=== PATIENT | male | born 1985 | race Caucasian/White ===

== ENCOUNTER 2020-07-05 12:32 | Inpatient (IN) | payer OTHER, SELFPAY ==
[2020-07-07 02:34] VITALS: BMI 25.7
[2020-07-08 06:45] VITALS: BP 140/72; PULSE 78; RESP 16; TEMP 36.3; O2SAT 97
[2020-07-08] MEDS: FLUoxetine HCl 20 MG CAPSULE PO (09:03)
[2020-07-08] MEDS: clonazePAM 1 MG TABLET PO ×2 (09:03→21:07)
[2020-07-08] MEDS: Lurasidone HCl 40 MG TABLET PO (09:03)
[2020-07-08] MEDS: Bacitracin Oint 14 GM TUBE 1 APPL TOPICAL ×2 (09:04→21:07)
[2020-07-08] MEDS: Lurasidone HCl 20 MG TABLET PO (10:28)
[2020-07-08 16:48] VITALS: BP 107/68; PULSE 84; TEMP 36.8
--- NOTE | 2020-07-08 17:06 | P.PNPSI_ITS ---
Assessment & Plan Assessment & Plan (1) Suicidal ideation: Status: Acute Code(s): R45.851 - Suicidal ideations Assessment and Plan: Evaluate safety Educate Refer for ongoing treatment (2) Mood swing: Status: Acute Code(s): R45.86 - Emotional lability Assessment and Plan: Continue Latuda and adjust the dose as needed Greater than 50% of the session was spent on counseling and/or coordination of care Spoke with father for 30 minutes Subjective Subjective Date of Service: 07/08/20 Reason For Visit: General Anxiety Subjective Notes: Conditional Voluntary and 3 Day Interim History: Alcon has been focused on leaving. LEYDA reports that his parents have said that they do not feel safe with him being at home as a result of his irritability, his impulsiveness, his threatening toward them at times. They are concerned about his not following through with treatment and the severity of the attempt that he made on his life. He is in considerable debt. He has disconnected from family members. I spoke with Alcon about the need for a solid discharge plan to ensure his safety and continued treatment. This is not in place. He does agree to [facility] but says he does not have a computer. He agrees to the idea. I explained the need to retract the 3 day since without a solid DC plan he is in the same situation as when he arrived and so at risk of harm. he is not able to go home. He declined to retract the three day and as a result a petition was filed for commitment since he is at imminent risk of harm. He is also very angry with his parents and may try to strike out at them. He is tolerating latuda and does seem to be less impulsive. Medication Compliance: Yes Side effects from medications: No Attending Groups: Intermittent Mental Status Exam Mental Status Exam Patient Appearance: Well Grooomed Level of Consciousness: Awake and Appropriate Patient Behavior: Talkative, Aggressive, Belligerent, Verbal Threats, Anxious, Impulsive and Pacing Mood Description: Suspicious, Depressed, Anxious and Angry Affect Description: Suspicious Patient Cognition Impaired: No Ability to Follow Directions: Poor Speech Pattern: Loud and Pressured Memory Description: Intact Hallucinations: None Delusions: Paranoid Ideation and Ideas of Reference Thought Process: Intact and Linear Thought Content: Preoccupation Depressive Symptoms: Increased Anxiety and Hopelessness Judgement: Poor Diagnostics Vital Signs (24Hr): Vital Signs - 24 hr 07/08/20 06:45 10/01/20 16:48 Temperature 97.4 F 98.2 F Pulse Rate 78 84 Respiratory Rate 16 Blood Pressure 140/72 H 107/68 Pulse Oximetry 97 Body Mass Index 25.7 Labs Results: 07/04/20 22:22 07/04/20 22:22 Labs: Laboratory Results - last 48 hr 07/04/20 07/04/20 07/04/20 22:22 22:22 22:22 WBC Cancelled RBC Cancelled Hgb Cancelled Hct Cancelled MCV Cancelled MCH Cancelled MCHC Cancelled RDW Coeff of Melvi Cancelled Plt Count Cancelled MPV Cancelled Immature Gran % (Auto) Cancelled Neut % (Auto) Cancelled Lymph % (Auto) Cancelled Pitt % (Auto) Cancelled Eos % (Auto) Cancelled Baso % (Auto) Cancelled Abs Immat Gran (auto) Cancelled Absolute Lymphs (auto) Cancelled Absolute Monos (auto) Cancelled Absolute Eos (auto) Cancelled Absolute Basos (auto) Cancelled Absolute Nucleated RBC Cancelled Nucleated RBC % (auto) Cancelled Sodium Cancelled Potassium Cancelled Chloride Cancelled Bicarbonate Cancelled Anion Gap Cancelled BUN Cancelled Creatinine Cancelled Estimated Creat Clear Cancelled Est GFR (Non-Af Amer) Cancelled Random Glucose Cancelled Estimat Average Glucose Hemoglobin A1c Total Bilirubin Cancelled Direct Bilirubin Cancelled AST Cancelled ALT Cancelled Alkaline Phosphatase Cancelled Total Protein Cancelled Albumin Cancelled Triglycerides Cholesterol LDL Cholesterol, Calc HDL Cholesterol Urine Opiates Screen Ur Barbiturates Screen Phencyclidine Screen Ur Amphetamines Screen U Benzodiazepines Scrn Urine Cocaine Screen U Cannabinoids Screen Ethyl Alcohol Cancelled Coronavirus (PCR) 07/04/20 07/05/20 07/06/20 23:33 09:26 07:00 WBC RBC Hgb Hct MCV MCH MCHC RDW Coeff of Melvi Plt Count MPV Immature Gran % (Auto) Neut % (Auto) Lymph % (Auto) Pitt % (Auto) Eos % (Auto) Baso % (Auto) Abs Immat Gran (auto) Absolute Lymphs (auto) Absolute Monos (auto) Absolute Eos (auto) Absolute Basos (auto) Absolute Nucleated RBC Nucleated RBC % (auto) Sodium Potassium Chloride Bicarbonate Anion Gap BUN Creatinine Estimated Creat Clear Est GFR (Non-Af Amer) Random Glucose Estimat Average Glucose Cancelled Hemoglobin A1c Cancelled Total Bilirubin Direct Bilirubin AST ALT Alkaline Phosphatase Total Protein Albumin Triglycerides Cholesterol LDL Cholesterol, Calc HDL Cholesterol Urine Opiates Screen NOT DETECTED Ur Barbiturates Screen NOT DETECTED Phencyclidine Screen NOT DETECTED Ur Amphetamines Screen NOT DETECTED U Benzodiazepines Scrn NOT DETECTED Urine Cocaine Screen NOT DETECTED U Cannabinoids Screen NOT DETECTED Ethyl Alcohol Coronavirus (PCR) NEGATIVE 07/06/20 07:00 WBC RBC Hgb Hct MCV MCH MCHC RDW Coeff of Melvi Plt Count MPV Immature Gran % (Auto) Neut % (Auto) Lymph % (Auto) Pitt % (Auto) Eos % (Auto) Baso % (Auto) Abs Immat Gran (auto) Absolute Lymphs (auto) Absolute Monos (auto) Absolute Eos (auto) Absolute Basos (auto) Absolute Nucleated RBC Nucleated RBC % (auto) Sodium Potassium Chloride Bicarbonate Anion Gap BUN Creatinine Estimated Creat Clear Est GFR (Non-Af Amer) Random Glucose Estimat Average Glucose Hemoglobin A1c Total Bilirubin Direct Bilirubin AST ALT Alkaline Phosphatase Total Protein Albumin Triglycerides Cancelled Cholesterol Cancelled LDL Cholesterol, Calc Cancelled HDL Cholesterol Cancelled Urine Opiates Screen Ur Barbiturates Screen Phencyclidine Screen Ur Amphetamines Screen U Benzodiazepines Scrn Urine Cocaine Screen U Cannabinoids Screen Ethyl Alcohol Coronavirus (PCR) Medications Medications Ambulatory Orders Medication Instructions Recorded clonazepam 1 tab PO BID 07/07/20 fluoxetine 1 cap PO DAILY 07/07/20 Allergies Allergies Allergy/AdvReac Type Severity Reaction Status Date / Time No Known Allergies* Allergy Uncoded 07/04/20 22:01
[2020-07-09 06:00] VITALS: BP 128/76; PULSE 84; RESP 16; TEMP 35.9; O2SAT 98
[2020-07-09] MEDS: clonazePAM 1 MG TABLET PO ×2 (08:45→22:28)
[2020-07-09] MEDS: FLUoxetine HCl 20 MG CAPSULE PO (08:45)
[2020-07-09] MEDS: Bacitracin Oint 14 GM TUBE 1 APPL TOPICAL ×2 (09:04→22:28)
[2020-07-09 17:15] VITALS: BP 124/69; PULSE 63; TEMP 36.8
[2020-07-09] MEDS: Lurasidone HCl 20 MG TABLET 60 MG PO (17:54)
--- NOTE | 2020-07-09 18:57 | P.PNPSI_ITS ---
Assessment & Plan Assessment & Plan (1) Mood swing: Status: Acute Code(s): R45.86 - Emotional lability Assessment and Plan: Continue latuda at current dose (2) Suicidal ideation: Status: Acute Code(s): R45.851 - Suicidal ideations Assessment and Plan: Currently denies Needs clear DC plan to be safe at home Greater than 50% of the session was spent on counseling and/or coordination of care Patient educated on: diagnosis and medication risk/benefits Reason for contiued inpatient stay Substantial Risk for: harm to self, harm to others and rapid decompensation Subjective Subjective Date of Service: 07/09/20 Reason For Visit: General Anxiety Subjective Notes: Other (Section 7) Interim History: I had a lengthy discussion with Confucianist's parents Mo and Ary. Reviewed diagnostics, and treatment plan for DC. They are in agreement with [facility], and his father will get him a computer to facilitate this, they will hold medication, Confucianist will have a Psychiatrist and therapist, and that if he does not agree to these conditions then he may not go to their home. This was presented to Confucianist with LEYDA. He acknowledges that he wants help and that he agrees to the terms. His mood is brightening and he is less agitated. Medication Compliance: Yes Side effects from medications: No Attending Groups: Yes Review of Systems Acute medical concerns: No Medical Review of Systems: unchanged Mental Status Exam Mental Status Exam Patient Appearance: Well Grooomed Patient Orientation: Person, Place, Time and Situation Level of Consciousness: Awake and Restless Patient Behavior: Appropriate, Cooperative and Aggressive Mood Description: Suspicious, Hostile and Apprehensive Affect Description: Apprehensive Patient Cognition Impaired: No Ability to Follow Directions: Good Speech Pattern: Monotone and Pressured Memory Description: Intact Hallucinations: None Delusions: Not Present Thought Process: Goal Oriented and Linear Thought Content: positive for Circumstantial and positive for Perseveration Depressive Symptoms: Increased Anxiety, Insomnia and Thoughts of /Suicide (NONE) Judgement: Fair Diagnostics Vital Signs (24Hr): Vital Signs - 24 hr 07/09/20 06:00 07/09/20 17:15 Temperature 96.7 F L 98.2 F Pulse Rate 84 63 Respiratory Rate 16 Blood Pressure 128/76 124/69 Pulse Oximetry 98 Body Mass Index 25.7 Labs Results: 07/04/20 22:22 07/04/20 22:22 Labs: Laboratory Results - last 48 hr 07/04/20 07/04/20 07/04/20 22:22 22:22 22:22 WBC Cancelled RBC Cancelled Hgb Cancelled Hct Cancelled MCV Cancelled MCH Cancelled MCHC Cancelled RDW Coeff of Melvi Cancelled Plt Count Cancelled MPV Cancelled Immature Gran % (Auto) Cancelled Neut % (Auto) Cancelled Lymph % (Auto) Cancelled O'Brien % (Auto) Cancelled Eos % (Auto) Cancelled Baso % (Auto) Cancelled Abs Immat Gran (auto) Cancelled Absolute Lymphs (auto) Cancelled Absolute Monos (auto) Cancelled Absolute Eos (auto) Cancelled Absolute Basos (auto) Cancelled Absolute Nucleated RBC Cancelled Nucleated RBC % (auto) Cancelled Sodium Cancelled Potassium Cancelled Chloride Cancelled Bicarbonate Cancelled Anion Gap Cancelled BUN Cancelled Creatinine Cancelled Estimated Creat Clear Cancelled Est GFR (Non-Af Amer) Cancelled Random Glucose Cancelled Estimat Average Glucose Hemoglobin A1c Total Bilirubin Cancelled Direct Bilirubin Cancelled AST Cancelled ALT Cancelled Alkaline Phosphatase Cancelled Total Protein Cancelled Albumin Cancelled Triglycerides Cholesterol LDL Cholesterol, Calc HDL Cholesterol Urine Opiates Screen Ur Barbiturates Screen Phencyclidine Screen Ur Amphetamines Screen U Benzodiazepines Scrn Urine Cocaine Screen U Cannabinoids Screen Ethyl Alcohol Cancelled Coronavirus (PCR) 07/04/20 07/05/20 07/06/20 23:33 09:26 07:00 WBC RBC Hgb Hct MCV MCH MCHC RDW Coeff of Melvi Plt Count MPV Immature Gran % (Auto) Neut % (Auto) Lymph % (Auto) O'Brien % (Auto) Eos % (Auto) Baso % (Auto) Abs Immat Gran (auto) Absolute Lymphs (auto) Absolute Monos (auto) Absolute Eos (auto) Absolute Basos (auto) Absolute Nucleated RBC Nucleated RBC % (auto) Sodium Potassium Chloride Bicarbonate Anion Gap BUN Creatinine Estimated Creat Clear Est GFR (Non-Af Amer) Random Glucose Estimat Average Glucose Cancelled Hemoglobin A1c Cancelled Total Bilirubin Direct Bilirubin AST ALT Alkaline Phosphatase Total Protein Albumin Triglycerides Cholesterol LDL Cholesterol, Calc HDL Cholesterol Urine Opiates Screen NOT DETECTED Ur Barbiturates Screen NOT DETECTED Phencyclidine Screen NOT DETECTED Ur Amphetamines Screen NOT DETECTED U Benzodiazepines Scrn NOT DETECTED Urine Cocaine Screen NOT DETECTED U Cannabinoids Screen NOT DETECTED Ethyl Alcohol Coronavirus (PCR) NEGATIVE 07/06/20 07:00 WBC RBC Hgb Hct MCV MCH MCHC RDW Coeff of Melvi Plt Count MPV Immature Gran % (Auto) Neut % (Auto) Lymph % (Auto) O'Brien % (Auto) Eos % (Auto) Baso % (Auto) Abs Immat Gran (auto) Absolute Lymphs (auto) Absolute Monos (auto) Absolute Eos (auto) Absolute Basos (auto) Absolute Nucleated RBC Nucleated RBC % (auto) Sodium Potassium Chloride Bicarbonate Anion Gap BUN Creatinine Estimated Creat Clear Est GFR (Non-Af Amer) Random Glucose Estimat Average Glucose Hemoglobin A1c Total Bilirubin Direct Bilirubin AST ALT Alkaline Phosphatase Total Protein Albumin Triglycerides Cancelled Cholesterol Cancelled LDL Cholesterol, Calc Cancelled HDL Cholesterol Cancelled Urine Opiates Screen Ur Barbiturates Screen Phencyclidine Screen Ur Amphetamines Screen U Benzodiazepines Scrn Urine Cocaine Screen U Cannabinoids Screen Ethyl Alcohol Coronavirus (PCR) Medications Medications Current Medications Generic Name Dose Route Start Last Admin Trade Name Freq PRN Reason Stop Dose Admin Acetaminophen 650 mg 07/08/20 00:01 Acetaminophen 325 Mg Tablet PO Q6H PRN HEADACHE/PAIN.MILD (SCALE 1-3) Al Hydroxide/Mg Hydroxide 30 ml 07/08/20 00:01 Magnesium Hydrox/Alum Hydrox 30 Ml Oral.Susp PO Q6H PRN HEARTBURN / NAUSEA Bacitracin 1 appl 07/08/20 09:00 07/09/20 09:04 Bacitracin Oint 14 Gm Tube TOPICAL 1 appl BID MAGGY Administration Protocol Clonazepam 1 mg 07/08/20 09:00 07/09/20 08:45 Clonazepam 1 Mg Tablet PO 1 mg BID MAGGY Administration Clonazepam 1 mg 07/08/20 00:01 Clonazepam 1 Mg Tablet PO Q4H PRN anxiety/restlessness Fluoxetine HCl 20 mg 07/08/20 09:00 07/09/20 08:45 Fluoxetine Hcl 20 Mg Capsule PO 20 mg DAILY MAGGY Administration Hydroxyzine HCl 25 mg 07/08/20 00:01 Hydroxyzine Hcl 25 Mg Tablet PO BEDTIME MRX1 PRN NIGHT TIME ANXIETY Lurasidone HCl 60 mg 07/09/20 17:00 07/09/20 17:54 Lurasidone Hcl 20 Mg Tablet PO 60 mg DAILY@1700 MAGGY Administration Magnesium Hydroxide 30 ml 07/08/20 00:01 Milk Of Magnesia 30 Ml Oral.Susp PO Q24H PRN Constipation Nicotine Polacrilex 2 mg 07/08/20 00:01 Nicotine Polacrilex 2 Mg Gum BUCCAL Q2H PRN NICOTINE CRAVINGS Trazodone HCl 50 mg 07/08/20 21:00 Trazodone Hcl 50 Mg Tablet PO BEDTIME MRX1 PRN Insomnia Allergies Allergies Allergy/AdvReac Type Severity Reaction Status Date / Time No Known Allergies* Allergy Uncoded 07/04/20 22:01
[2020-07-10 06:47] VITALS: BP 116/56; PULSE 63; RESP 16; TEMP 36.8
[2020-07-10] MEDS: FLUoxetine HCl 20 MG CAPSULE PO (08:41)
[2020-07-10] MEDS: clonazePAM 1 MG TABLET PO ×2 (09:05→22:08)
[2020-07-10] MEDS: Bacitracin Oint 14 GM TUBE 1 APPL TOPICAL ×2 (09:05→22:10)
[2020-07-10] MEDS: Milk of Magnesia 30 ML ORAL.SUSP PO (10:15)
--- NOTE | 2020-07-10 12:10 | HO.PSYCHPN ---
Assessment & Plan Assessment & Plan (1) Mood swing: Status: Acute Code(s): R45.86 - Emotional lability Assessment and Plan: 1 wk ago stressed over IRS bill then went drinking (2) Suicidal ideation: Status: Acute Code(s): R45.851 - Suicidal ideations Assessment and Plan: reports had knife to cut throat but couldn't , cut some on arm to identify pressure feeling differently now that not drinking and getting help he needs also feels that he can manage IRS issue Greater than 50% of the session was spent on counseling and/or coordination of care Subjective Subjective Date of Service: 07/10/20 Reason For Visit: ?gaston Subjective Notes: Other (sec 7) Interim History: Patient felt helped by nurse today who told him dr valenzuela is working in out in area he hopes to reconnect felt connected to him as a child- able to take sec 7 in perspective in that dental tech helped him have a different view- that he is now getting help he needed looking to partial hospital/outpatient care- he has terrible association with inpatient psych- from 7 yo Medication Compliance: Yes Side effects from medications: No Attending Groups: Intermittent Review of Systems Acute medical concerns: No Medical Review of Systems: unchanged Mental Status Exam Mental Status Exam Narrative: cooperative Patient Appearance: Well Grooomed Patient Orientation: Person, Place, Time and Situation Level of Consciousness: Awake and Alert Patient Behavior: Guarded and Cooperative Behavior Comments: kempt Mood Description: Calm and Anxious Affect Description: Constricted Patient Cognition Impaired: No Ability to Follow Directions: Good Speech Pattern: Clear Hallucinations: None Thought Process: Intact Thought Content: positive for Preoccupation Depressive Symptoms: Increased Anxiety, Diff. Making Decisions and Increased Irritability (was freaked out by 13k tax bill from [employer] - felt terrible) Abnormal Motor Activity Signs and Symptoms: Restlessness Judgement: Fair Diagnostics Vital Signs (24Hr): Vital Signs - 24 hr 07/09/20 17:15 07/10/20 06:47 Temperature 98.2 F 98.3 F Pulse Rate 63 63 Respiratory Rate 16 Blood Pressure 124/69 116/56 L Body Mass Index 25.7 Labs Results: 07/04/20 22:22 07/04/20 22:22 Medications Medications Current Medications Generic Name Dose Route Start Last Admin Trade Name Freq PRN Reason Stop Dose Admin Acetaminophen 650 mg 07/08/20 00:01 Acetaminophen 325 Mg Tablet PO Q6H PRN HEADACHE/PAIN.MILD (SCALE 1-3) Al Hydroxide/Mg Hydroxide 30 ml 07/08/20 00:01 Magnesium Hydrox/Alum Hydrox 30 Ml Oral.Susp PO Q6H PRN HEARTBURN / NAUSEA Bacitracin 1 appl 07/08/20 09:00 07/10/20 09:05 Bacitracin Oint 14 Gm Tube TOPICAL 1 appl BID MAGGY Administration Protocol Clonazepam 1 mg 07/08/20 09:00 07/10/20 09:05 Clonazepam 1 Mg Tablet PO 1 mg BID MAGGY Administration Clonazepam 1 mg 07/08/20 00:01 Clonazepam 1 Mg Tablet PO Q4H PRN anxiety/restlessness Clonidine HCl 0.1 mg 07/09/20 21:00 07/09/20 22:34 Clonidine Hcl 0.1 Mg Tablet PO Not Given BEDTIME COUNT INCLUDES [facility] Protocol Fluoxetine HCl 20 mg 07/08/20 09:00 07/10/20 08:41 Fluoxetine Hcl 20 Mg Capsule PO 20 mg DAILY MAGGY Administration Hydroxyzine HCl 25 mg 07/08/20 00:01 Hydroxyzine Hcl 25 Mg Tablet PO BEDTIME MRX1 PRN NIGHT TIME ANXIETY Lurasidone HCl 60 mg 07/09/20 17:00 07/09/20 17:54 Lurasidone Hcl 20 Mg Tablet PO 60 mg DAILY@1700 MAGGY Administration Magnesium Hydroxide 30 ml 07/08/20 00:01 07/10/20 10:15 Milk Of Magnesia 30 Ml Oral.Susp PO 30 ml Q24H PRN Administration Constipation Nicotine Polacrilex 2 mg 07/08/20 00:01 Nicotine Polacrilex 2 Mg Gum BUCCAL Q2H PRN NICOTINE CRAVINGS Trazodone HCl 50 mg 07/08/20 21:00 Trazodone Hcl 50 Mg Tablet PO BEDTIME MRX1 PRN Insomnia Allergies Allergies Allergy/AdvReac Type Severity Reaction Status Date / Time No Known Allergies Allergy Verified 07/09/20 19:20
[2020-07-10] MEDS: Lurasidone HCl 20 MG TABLET 60 MG PO (17:20)
[2020-07-10 18:00] VITALS: BP 112/54; PULSE 68; TEMP 37.1
[2020-07-10 22:08] VITALS: BP 112/54; PULSE 68
[2020-07-10] MEDS: cloNIDine HCL 0.1 MG TABLET PO (22:08)
[2020-07-11 06:00] VITALS: BP 110/54; PULSE 75; RESP 16; TEMP 36.5; O2SAT 99
[2020-07-11] MEDS: clonazePAM 1 MG TABLET PO ×2 (08:44→19:39)
[2020-07-11] MEDS: FLUoxetine HCl 20 MG CAPSULE PO (08:44)
--- NOTE | 2020-07-11 12:31 | HO.PSYCHPN ---
Assessment & Plan Assessment & Plan (1) Mood swing: Status: Acute Code(s): R45.86 - Emotional lability Assessment and Plan: taking medications (2) Suicidal ideation: Status: Acute Code(s): R45.851 - Suicidal ideations Assessment and Plan: denies Greater than 50% of the session was spent on counseling and/or coordination of care Subjective Subjective Date of Service: 07/11/20 Reason For Visit: ?gaston Subjective Notes: Other (sec 7) Interim History: Pt didn't sleep alot but went to bed at 9p and up at 3am - still feels overall better, excited about plan to go to [facility] and possibly get prior psychiatrist Medication Compliance: Yes Side effects from medications: No Attending Groups: Yes Review of Systems Acute medical concerns: No Medical Review of Systems: unchanged Review of Systems: denies any s/e of medications Mental Status Exam Mental Status Exam Narrative: walking jovel, appropriately dressed and groomed, wearing mask appropriately Patient Appearance: Appropriate Patient Orientation: Person, Place, Time and Situation Level of Consciousness: Awake and Alert Patient Behavior: Appropriate, Cooperative and Pacing Mood Description: Anxious Affect Description: Calm and Constricted Patient Cognition Impaired: No Ability to Follow Directions: Good Speech Pattern: Clear Thought Process: Intact and Goal Oriented Thought Content: positive for Intact and positive for Goal Oriented Depressive Symptoms: Insomnia (got 5 hrs) Abnormal Motor Activity Signs and Symptoms: Restlessness Judgement: Fair Diagnostics Vital Signs (24Hr): Vital Signs - 24 hr 07/10/20 18:00 07/10/20 22:08 07/11/20 06:00 Temperature 98.7 F 97.7 F Pulse Rate 68 68 75 Respiratory Rate 16 Blood Pressure 112/54 L 112/54 L 110/54 L Pulse Oximetry 99 Body Mass Index 25.7 Labs Results: 07/04/20 22:22 07/04/20 22:22 Medications Medications Current Medications Generic Name Dose Route Start Last Admin Trade Name Freq PRN Reason Stop Dose Admin Acetaminophen 650 mg 07/08/20 00:01 Acetaminophen 325 Mg Tablet PO Q6H PRN HEADACHE/PAIN.MILD (SCALE 1-3) Al Hydroxide/Mg Hydroxide 30 ml 07/08/20 00:01 Magnesium Hydrox/Alum Hydrox 30 Ml Oral.Susp PO Q6H PRN HEARTBURN / NAUSEA Bacitracin 1 appl 07/08/20 09:00 07/10/20 22:10 Bacitracin Oint 14 Gm Tube TOPICAL 1 appl BID MAGGY Administration Protocol Clonazepam 1 mg 07/08/20 09:00 07/11/20 08:44 Clonazepam 1 Mg Tablet PO 1 mg BID MAGGY Administration Clonazepam 1 mg 07/08/20 00:01 Clonazepam 1 Mg Tablet PO Q4H PRN anxiety/restlessness Clonidine HCl 0.1 mg 07/09/20 21:00 07/10/20 22:08 Clonidine Hcl 0.1 Mg Tablet PO 0.1 mg BEDTIME MAGGY Administration Protocol Fluoxetine HCl 20 mg 07/08/20 09:00 07/11/20 08:44 Fluoxetine Hcl 20 Mg Capsule PO 20 mg DAILY MAGGY Administration Hydroxyzine HCl 25 mg 07/08/20 00:01 Hydroxyzine Hcl 25 Mg Tablet PO BEDTIME MRX1 PRN NIGHT TIME ANXIETY Lurasidone HCl 60 mg 07/09/20 17:00 07/10/20 17:20 Lurasidone Hcl 20 Mg Tablet PO 60 mg DAILY@1700 MAGGY Administration Magnesium Hydroxide 30 ml 07/08/20 00:01 07/10/20 10:15 Milk Of Magnesia 30 Ml Oral.Susp PO 30 ml Q24H PRN Administration Constipation Nicotine Polacrilex 2 mg 07/08/20 00:01 Nicotine Polacrilex 2 Mg Gum BUCCAL Q2H PRN NICOTINE CRAVINGS Trazodone HCl 50 mg 07/08/20 21:00 Trazodone Hcl 50 Mg Tablet PO BEDTIME MRX1 PRN Insomnia Allergies Allergies Allergy/AdvReac Type Severity Reaction Status Date / Time No Known Allergies Allergy Verified 07/09/20 19:20
[2020-07-11] MEDS: Bacitracin Oint 14 GM TUBE 1 APPL TOPICAL ×2 (13:37→19:40)
[2020-07-11 16:23] VITALS: BP 105/58; PULSE 71; TEMP 36.4
[2020-07-11] MEDS: Lurasidone HCl 20 MG TABLET 60 MG PO (17:22)
[2020-07-11 19:39] VITALS: BP 115/55; PULSE 68
[2020-07-11] MEDS: cloNIDine HCL 0.1 MG TABLET PO (19:39)
[2020-07-12] MEDS: hydrOXYzine HCL 25 MG TABLET PO (00:38)
[2020-07-12 06:50] VITALS: BP 113/55; PULSE 72; RESP 16; TEMP 36.4
[2020-07-12] MEDS: FLUoxetine HCl 20 MG CAPSULE PO (08:38)
[2020-07-12] MEDS: clonazePAM 1 MG TABLET PO ×2 (08:38→22:17)
[2020-07-12] MEDS: Bacitracin Oint 14 GM TUBE 1 APPL TOPICAL ×2 (08:42→22:17)
[2020-07-12] MEDS: Milk of Magnesia 30 ML ORAL.SUSP PO (08:44)
--- NOTE | 2020-07-12 09:21 | P.PNPSI_ITS ---
Assessment & Plan Assessment & Plan (1) Mood swing: Status: Acute Code(s): R45.86 - Emotional lability Assessment and Plan: Significant improvement Increase Latuda [facility] Referrals Greater than 50% of the session was spent on counseling and/or coordination of care Subjective Subjective Date of Service: 07/12/20 Reason For Visit: ?gaston Subjective Notes: Legal Status (S7) Interim History: Alcon is notably calmer and more reasonable. He was able to express his frustration and disappointment about not being DC today, but he was also able to understand the rationale. He reports that he feels that the Latuda has helped him to think more clearly. Medication Compliance: Yes Side effects from medications: No Attending Groups: Yes Review of Systems Acute medical concerns: No Medical Review of Systems: unchanged Mental Status Exam Mental Status Exam Patient Appearance: Well Grooomed Patient Orientation: Person, Place, Time and Situation Level of Consciousness: Awake Patient Behavior: Appropriate Mood Description: Calm Affect Description: Calm Patient Cognition Impaired: No Ability to Follow Directions: Excellent Speech Pattern: Clear, Normal for Patient and Appropriate Memory Description: Intact Hallucinations: None Delusions: Not Present Thought Process: Goal Oriented Thought Content: positive for Circumstantial, positive for Perseveration, positive for Suicidal Ideation (No) and positive for Homicidal Ideation (No) Judgement: Fair Judgement and Insight: Greatly improved insight Diagnostics Vital Signs (24Hr): Vital Signs - 24 hr 07/11/20 16:23 07/11/20 19:39 07/12/20 06:50 Temperature 97.5 F 97.5 F Pulse Rate 71 68 72 Respiratory Rate 16 Blood Pressure 105/58 L 115/55 L 113/55 L Body Mass Index 25.7 Labs Results: 07/04/20 22:22 07/04/20 22:22 Medications Medications Current Medications Generic Name Dose Route Start Last Admin Trade Name Freq PRN Reason Stop Dose Admin Acetaminophen 650 mg 07/08/20 00:01 Acetaminophen 325 Mg Tablet PO Q6H PRN HEADACHE/PAIN.MILD (SCALE 1-3) Al Hydroxide/Mg Hydroxide 30 ml 07/08/20 00:01 Magnesium Hydrox/Alum Hydrox 30 Ml Oral.Susp PO Q6H PRN HEARTBURN / NAUSEA Bacitracin 1 appl 07/08/20 09:00 07/12/20 08:42 Bacitracin Oint 14 Gm Tube TOPICAL 1 appl BID MAGGY Administration Protocol Clonazepam 1 mg 07/08/20 09:00 07/12/20 08:38 Clonazepam 1 Mg Tablet PO 1 mg BID MAGGY Administration Clonazepam 1 mg 07/08/20 00:01 Clonazepam 1 Mg Tablet PO Q4H PRN anxiety/restlessness Clonidine HCl 0.1 mg 07/09/20 21:00 07/11/20 19:39 Clonidine Hcl 0.1 Mg Tablet PO 0.1 mg BEDTIME MAGGY Administration Protocol Fluoxetine HCl 20 mg 07/08/20 09:00 07/12/20 08:38 Fluoxetine Hcl 20 Mg Capsule PO 20 mg DAILY MAGGY Administration Hydroxyzine HCl 25 mg 07/08/20 00:01 07/12/20 00:38 Hydroxyzine Hcl 25 Mg Tablet PO 25 mg BEDTIME MRX1 PRN Administration NIGHT TIME ANXIETY Lurasidone HCl 60 mg 07/09/20 17:00 07/11/20 17:22 Lurasidone Hcl 20 Mg Tablet PO 60 mg DAILY@1700 MAGGY Administration Magnesium Hydroxide 30 ml 07/08/20 00:01 07/12/20 08:44 Milk Of Magnesia 30 Ml Oral.Susp PO 30 ml Q24H PRN Administration Constipation Nicotine Polacrilex 2 mg 07/08/20 00:01 Nicotine Polacrilex 2 Mg Gum BUCCAL Q2H PRN NICOTINE CRAVINGS Trazodone HCl 50 mg 07/08/20 21:00 Trazodone Hcl 50 Mg Tablet PO BEDTIME MRX1 PRN Insomnia Allergies Allergies Allergy/AdvReac Type Severity Reaction Status Date / Time No Known Allergies Allergy Verified 07/09/20 19:20
[2020-07-12] MEDS: Lurasidone HCl 80 MG TABLET PO (16:18)
[2020-07-12 22:08] VITALS: BP 121/68; PULSE 69; TEMP 36.6
[2020-07-12 22:18] VITALS: BP 121/68; PULSE 64
[2020-07-12] MEDS: cloNIDine HCL 0.1 MG TABLET PO (22:18)
[2020-07-13] MEDS: hydrOXYzine HCL 25 MG TABLET PO (02:47)
[2020-07-13] MEDS: traZODone HCL 50 MG TABLET PO (02:47)
[2020-07-13 06:00] VITALS: BP 112/56; PULSE 61; RESP 16; TEMP 36.2
[2020-07-13] MEDS: clonazePAM 1 MG TABLET PO (09:30)
[2020-07-13] MEDS: FLUoxetine HCl 20 MG CAPSULE PO (09:30)
[2020-07-13] MEDS: Bacitracin Oint 14 GM TUBE 1 APPL TOPICAL (09:33)
--- NOTE | 2020-07-13 09:37 | HO.PSYCHPN ---
Assessment & Plan Assessment & Plan (1) Mood swing: Status: Acute Code(s): R45.86 - Emotional lability Assessment and Plan: Much improved with Latuda CT treatment as OP. See DC summary. (2) Suicidal ideation: Status: Resolved Code(s): R45.851 - Suicidal ideations Greater than 50% of the session was spent on counseling and/or coordination of care Subjective Subjective Date of Service: 07/13/20 Reason For Visit: ?gaston Interim History: Alcon refused to have his labs for lipoprotien and HBA1c. He agreed to have them does as an outpatient. He had his PHP intake and will start the program tomorrow. He is signficantly clearer. Medication Compliance: Yes Side effects from medications: No Attending Groups: Yes Review of Systems Acute medical concerns: No Medical Review of Systems: unchanged Mental Status Exam Mental Status Exam Patient Appearance: Well Grooomed Patient Orientation: Person Level of Consciousness: Awake Patient Behavior: Appropriate Mood Description: Calm Affect Description: Calm Patient Cognition Impaired: No Ability to Follow Directions: Excellent Speech Pattern: Clear Memory Description: Intact Hallucinations: None Delusions: Not Present Thought Process: Intact Thought Content: positive for Intact, positive for Suicidal Ideation (No) and positive for Homicidal Ideation (No) Judgement: Good Judgement and Insight: Much improved Diagnostics Vital Signs (24Hr): Vital Signs - 24 hr 07/12/20 22:08 07/12/20 22:18 07/13/20 06:00 Temperature 97.8 F 97.1 F Pulse Rate 69 64 61 Respiratory Rate 16 Blood Pressure 121/68 121/68 112/56 L Body Mass Index 25.7 Labs Results: 07/04/20 22:22 07/04/20 22:22 Medications Medications Current Medications Generic Name Dose Route Start Last Admin Trade Name Freq PRN Reason Stop Dose Admin Acetaminophen 650 mg 07/08/20 00:01 Acetaminophen 325 Mg Tablet PO Q6H PRN HEADACHE/PAIN.MILD (SCALE 1-3) Al Hydroxide/Mg Hydroxide 30 ml 07/08/20 00:01 Magnesium Hydrox/Alum Hydrox 30 Ml Oral.Susp PO Q6H PRN HEARTBURN / NAUSEA Bacitracin 1 appl 07/08/20 09:00 07/13/20 09:33 Bacitracin Oint 14 Gm Tube TOPICAL 1 appl BID MAGGY Administration Protocol Clonazepam 1 mg 07/13/20 09:21 07/13/20 09:30 Clonazepam 1 Mg Tablet PO 1 mg BID MAGGY Administration Clonidine HCl 0.1 mg 07/09/20 21:00 07/12/20 22:18 Clonidine Hcl 0.1 Mg Tablet PO 0.1 mg BEDTIME MAGGY Administration Protocol Fluoxetine HCl 20 mg 07/08/20 09:00 07/13/20 09:30 Fluoxetine Hcl 20 Mg Capsule PO 20 mg DAILY MAGGY Administration Hydroxyzine HCl 25 mg 07/08/20 00:01 07/13/20 02:47 Hydroxyzine Hcl 25 Mg Tablet PO 25 mg BEDTIME MRX1 PRN Administration NIGHT TIME ANXIETY Lurasidone HCl 80 mg 07/12/20 17:00 07/12/20 16:18 Lurasidone Hcl 80 Mg Tablet PO 80 mg DAILY@1700 MAGGY Administration Magnesium Hydroxide 30 ml 07/08/20 00:01 07/12/20 08:44 Milk Of Magnesia 30 Ml Oral.Susp PO 30 ml Q24H PRN Administration Constipation Nicotine Polacrilex 2 mg 07/08/20 00:01 Nicotine Polacrilex 2 Mg Gum BUCCAL Q2H PRN NICOTINE CRAVINGS Trazodone HCl 50 mg 07/08/20 21:00 07/13/20 02:47 Trazodone Hcl 50 Mg Tablet PO 50 mg BEDTIME MRX1 PRN Administration Insomnia Allergies Allergies Allergy/AdvReac Type Severity Reaction Status Date / Time No Known Allergies Allergy Verified 07/09/20 19:20
--- NOTE | 2020-07-13 11:10 | P.DS_ITS ---
DS: Providers Provider Date of admission: 07/05/20 12:32 Primary care physician: Unknown Physician Consults: 07/07/20 05:34 Consult to Crisis Stat DS: Diagnosis Discharge Diagnosis (1) Mood swing: Status: Acute (2) Suicidal ideation: Status: Resolved Discharge Plan Discharge Anticipated Discharge Date/Time: 07/13/20 13:00 Patient Disposition: Home, Self-Care Referrals: Michelle Robb [Other] - 07/19/20 11:00 am Stanley Eduardo [Other] - 08/10/20 1:00 pm Stanley Eduardo [Other] - 09/07/20 3:[address] CHIOMA MCKEE [Other] - 07/15/20 11:30 am [facility] [Other] - 07/14/20 9:00 am (Jennifer Kiser will email you an invite to [facility] through your [employer] account to start PHP om 07/14/20 at 9:00AM. ) Physician,Unknown [Primary Care Provider] - Discharge Medications: New hydroxyzine HCl 25 mg Tablet 25 mg PO BEDTIME MRX1 PRN (Reason: NIGHT TIME ANXIETY) Qty: 30 RF: 0 fluoxetine 20 mg Capsule 20 mg PO DAILY Qty: 30 RF: 0 Latuda 80 mg Tablet 80 mg PO DAILY@1700 Qty: 30 RF: 0 clonidine HCl 0.1 mg Tablet 0.1 mg PO BEDTIME Qty: 30 RF: 0 trazodone 50 mg Tablet 50 mg PO BEDTIME MRX1 PRN (Reason: Insomnia) Qty: 30 RF: 0 clonazepam 1 mg Tablet 1 mg PO BID Qty: 60 RF: 0 Discontinued fluoxetine 40 mg capsule 1 cap PO DAILY RF: 0 clonazepam 1 mg tablet 1 tab PO BID RF: 0 Discharge Orders: Discharge Order (Routine); Ordered 07/13/20 Ordered By: Patricia Ruggiero Diet: advance to your usual diet Activity on Discharge: As tolerated Stand Alone Forms: Community Support Visit Report Forms: Patient Portal Discharge page Care Plan Goals: Reduce psychosis and mood lability Health Concerns: Psychosis Impulsivitiy Plan of Treatment: Stay on medications Attend PHP See your psychiatrist and therapist
[2020-07-13 11:55] LABS: MANUAL DIFF FLAG NO
[2020-07-13 12:03] LABS: Basophils Percent Auto 0.5 % (0-2); Eosinophils Absolute Auto 0.1 X10*3/uL (0.0-0.4); Eosinophils Percent Auto 2.1 % (0-4); Hematocrit 43.4 % (42-52); Hemoglobin 14.7 g/dl (14.0-18.0); Imm Gran Abs Auto 0.02 X10*3/uL (0.00-0.03); Imm Gran Pct Auto 0.3 % (0.0-0.4); Lymphocytes Absolute Auto 1.8 X10*3/uL (1.2-4.9); Lymphocytes Percent Auto 30.8 % (20-40); Mean Corpuscular HGB Conc 33.9 g/dl (31.0-36.0); Mean Corpuscular Hemoglobin 31.9 pg (27.0-33.0); Mean Corpuscular Volume 94.1 fL (80-98); Mean Platelet Volume 10.1 fL (9.4-12.4); Monocytes Absolute Auto 0.5 X10*3/uL (0.1-1.2); Monocytes Percent Auto 7.8 % (2-11); Neutrophils Absolute Auto 3.4 X10*3/uL (2.0-8.3); Neutrophils Percent Auto 58.5 % (45-73); Platelet Count 251 X10*3/uL (160-400); Red Blood Count 4.61 X10*6/uL (4.60-5.80); Red Cell Distribution Width 12.2 % (11.0-16.0); White Blood Count 5.8 X10*3/uL (4.8-10.8)
[2020-07-13 12:36] LABS: Alanine Aminotransferase 18 U/L (0-40); Albumin Level 4.4 g/dL (3.5-5.0); Alkaline Phosphatase 72 U/L (39-117); Anion Gap 12 (12-20); Aspartate Amino Transferase 17 U/L (5-37); Bilirubin Total 0.5 mg/dL (0.0-1.0); Blood Urea Nitrogen 12 mg/dL (9-16); Calcium 9.4 mg/dL (8.4-10.2); Carbon Dioxide 28 mmol/L (22-29); Chloride 105 mmol/L (96-108); Cholesterol 209 mg/dL; Creatinine Clr Calc Pharmacy 92.1; Estimated Glomerular Filt Rate > 60; Glucose Fasting 85 mg/dL (60-99); HDL Cholesterol 36 mg/dL; LDL Cholesterol Calculated 131 mg/dl; Potassium 4.5 mmol/l (3.3-5.1); Sodium 140 mmol/L (135-145); Total Protein 6.5 g/dL (6.5-8.0); Triglycerides 211 mg/dL
[2020-07-13 14:06] LABS: Estimated Average Glucose 97 mg/dL
== END 2020-07-13 14:24 | disposition home or self-care (01) | DRG 885 ==
PROVIDERS: Admitting Provider Psychiatry & Neurology Psychiatry; Emergency Provider Physician Assistant; Visit Provider Psychiatry & Neurology Psychiatry
DX: F31.10 Bipolar disorder, current episode manic without psychotic features, unspecified (principal); R45.851 Suicidal ideations; Z20.828 Contact with and (suspected) exposure to other viral communicable diseases; Z79.899 Other long term (current) drug therapy
CPT/HCPCS: 36415; 80053; 80061; 80307; 83036; 83070; 83695; 85025; 96372; 99232; 99285; J1200; J2060; U0003

== ENCOUNTER 2020-08-03 13:30 | Outpatient (RCR) | payer OTHER, SELFPAY ==
[2020-07-14 13:23] VITALS: BMI 27.1
--- NOTE | 2020-07-14 14:46 | PC.ADMIT ---
Completed via telephone d/t pandemic and telehealth platform of the program. Patient is a 35 year old male who started the PHP program today d/t mood instability. Patient was referred by [facility] where he was admitted for depression with SI. Prior to hospitalization patient cut his wrist superficially and attempted to cut his throat. His parents whom he lives with called 911 and patient was taken to the hospital with police presence. Pt reportedly was drinking ETOH an was aggressive towards police and ER staff. Pt reportdly was given a medication restraint in the ER. Pt reports financial issues related to gambling addiction and reportedly is in debt 13,000 dollars to the IRS. Patient is alert and oriented x4. Calm and cooperative. Denied SI. Gave verbal permission to email him a copy of his safety plan and agreed to utilize if feeling unsafe. Pt also agreed to talk to staff and has the crisis number if needed. Pt plans on abstaining from substances.
--- NOTE | 2020-07-14 16:24 | P.HPPSP_ITS ---
HPI Chief Complaint: depression Sources of Information: patient interviewed and chart reviewed HPI Narrative: 35 yo male, admitted in step-down from where he was admitted for SI with plan and superficial cuts to wrists,arms and throat. Reports an increase in depressive and anxious sx, anergy, feeling hopeless, helpless with increases in sleep and appetite. 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 He describes a cycle, in work and treatment of working closely with people, becoming emotionally attached, then leaving abruptly. He describes this with a previous therapist who was very helpful to him. Describes feeling guilty that he did not feel improved, pretending to improve, then stopping. Reports symptoms of depression and anxiety have been present for most of his life. Identifies other stressors as financial stress due to job loss and compulsive gambling- enjoying horse racing with interest in the sport and as a result recently received a bill owing the [facility] 13K which was a trigger to recent suicide attempt/SIBS. Reports that while in- patient he was started on Clonidine, Hydroxyzine, Trazodone and Latuda. He states Latuda has been significantly helpful in taking away his sx of dwelling on issues and has decreased my tendency to have tunnel vision . Past Psychiatric History: In Pt: Admitted at age 7 for questionable psychosis- this was a traumatic experience for pt. OP: hx of psychotherapy-states he has had excellent care and feels guilty that he does not improve, so pretends he is OK and precipitously ends treatment. Referred to [facility]. Michelle Robb 07/19/20. Dr. Eduardo 08/09/20. Pt has worked with Dr. Eduardo in the past and is pleased with this referral as he believes Dr. Eduardo had the most success in working with him. Trials: Childhood. No recent ones he recalls. Medical Evaluation Reviewed: Yes [facility] Medical History (Updated 07/16/20 @ 09:31 by Heather Goldman APRN) Elbow fracture H/O multiple concussions History of ankle fracture PTSD (post-traumatic stress disorder) Family History: depression anxiety Social History: Single, lives with family of origin. 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 Denies legal issues Substance History: Cannabis on occasion, social alcohol use. Gambling on horses is an issue-currently owes IRS 13K. Has genuine interest in the sport he reports. Trauma History: In-patient psychiatric admission age 7. Diagnostics Vital Signs (24Hr): Body Mass Index 27.1 Meds/Allergies Allergies Allergies Allergy/AdvReac Type Severity Reaction Status Date / Time No Known Allergies Allergy Verified 07/09/20 19:20 Mental Status Exam Mental Status Exam Patient Appearance: Well Grooomed and Appropriate Patient Orientation: Person, Place, Time and Situation Level of Consciousness: Awake, Appropriate and Alert Patient Behavior: Appropriate, Talkative and Cooperative Behavior Comments: Forthcoming Mood Description: Calm, Appropriate and Flat Affect Description: Calm and Flat Patient Cognition Impaired: No Ability to Follow Directions: Excellent Speech Pattern: Clear and Appropriate Memory Description: Intact Hallucinations: None Delusions: Not Present Thought Process: Intact Thought Content: positive for Intact Depressive Symptoms: Increased Anxiety, Difficulty Sleeping, Changes in Appetite, Sleeping More Than Usual, Loss of Int. in Activity, Hopelessness, Isolating-Friends/Family, Feelings of Guilt, Increased Fatigue and Loss of Energy Judgement: Good Assessment & Plan Patient educated on: medication risk/benefits (Continue Klonopin 1 mg bid, Clonidine 0.1 mg hs, Prozac 20 mg daily, Atarax 25 mg hs-MRx1, Latuda 80 mg daily, Trazodone 50 mg hs MRx1.) and therapeutic strategies Informed Consent: understands and further education needed Reason for continued partial hosp. stay Substantial Risk for: harm to self, inability to function and rapid decompensation Certification I certify that partial hospital treatment is medically necessary due to the symptoms and problems resulting from the patient's mental illness and the failure to treat the patient at the partial hospital level of care would likely result in the patient requiring inpatient psychiatric care which could not be prevented at a less intensive level of care.
--- NOTE | 2020-07-22 13:27 | PC.NURSE ---
Called patient and gave him information about online [place] groups. Patient thankful and stated he is planning on attending online groups for more support. Stated he has not gambled since being in the program and has been making some lifestyle changes which he attributes from attending the program. Learning how to cope with his emotions and is now able to be open and honest with his family. Wants to be able to, keep on this path .
--- NOTE | 2020-07-22 16:05 | P.PNPSP_ITS ---
Subjective Subjective Date of Service: 07/22/20 Reason For Visit: depression Interim History: Pt reports feeling off a bit today. Sister/family are visiting from out of town and pt reports receiving some bad news today. Reports mood to be stable, even my family notices the difference . Symptom mgt goals are 1. anxiety; 2. compulsivity; 3. depression and 4. low self-esteem. Pt reports he has had difficulty with sleep-not using sleeping medication unless he is desparate . Reports he does not feel tired, has adequate energy and appetite is intact. Current sleep pattern is MISTY-up for the day at 2am. Usually in bed by 8pm, asleep within an hour, nightmares are diminishing. States he is able to remain up all day, without naps and not feeling tired. Not wanting to utilize Trazodone or Hydroxyzine. Discussion of low dose Remeron which he is interested in. Medication Compliance: No (not using Trazodone/Hydroxyzine with reported MISTY/EDMUNDO-getting 5-6 hours/noc) Side effects from medications: No Attending Groups: Yes Review of Systems Review of Systems Yes all other systems are reviewed and are negative Psychiatric: Reports abnormal sleep pattern and Reports anxiety Mental Status Exam Mental Status Exam Patient Orientation: Person, Place, Time and Situation Level of Consciousness: Awake and Alert Patient Behavior: Appropriate Mood Description: Calm and Flat Affect Description: Calm and Flat Patient Cognition Impaired: No Ability to Follow Directions: Excellent Speech Pattern: Clear, Appropriate and Spontaneous Speech Memory Description: Intact Hallucinations: None Delusions: Not Present Thought Process: Intact Thought Content: positive for Intact Depressive Symptoms: Insomnia (MISTY, EDMUNDO) and Difficulty Sleeping Judgement: Good Diagnostics Vital Signs (24Hr): Body Mass Index 27.1 Assessment & Plan Patient educated on: medication risk/benefits and therapeutic strategies Informed Consent: understands and further education needed Reason for contiued partial hosp. stay Substantial Risk for: harm to self, inability to function and rapid decompensation Certification I certify that partial hospital treatment is medically necessary due to the symptoms and problems resulting from the patient's mental illness and the fail ure to treat the patient at the partial hospital level of care would likely result in the patient requiring inpatient psychiatric care which could not be prevented at a less intensive level of care. Greater than 50% of the session was spent on counseling and/or coordination of care Discharge Plan Discharge Attending provider: Teo Kern Additional Instructions: Discontinue Trazodone Mirtazapine 3.75-7.5 mg HS Medications: New mirtazapine 7.5 mg tablet 3.75 - 7.5 mg PO BEDTIME Qty: 10 RF: 0 Discontinued trazodone 50 mg Tablet 50 mg PO BEDTIME MRX1 PRN (Reason: Insomnia) Qty: 30 RF: 0 No Action hydroxyzine HCl 25 mg Tablet 25 mg PO BEDTIME MRX1 PRN (Reason: NIGHT TIME ANXIETY) Qty: 30 RF: 0 fluoxetine 20 mg Capsule 20 mg PO DAILY Qty: 30 RF: 0 Latuda 80 mg Tablet 80 mg PO DAILY@1700 Qty: 30 RF: 0 clonidine HCl 0.1 mg Tablet 0.1 mg PO BEDTIME Qty: 30 RF: 0 clonazepam 1 mg Tablet 1 mg PO BID Qty: 60 RF: 0
--- NOTE | 2020-07-23 13:36 | PC.NURSE ---
JOSHUA for pt's therapist, Michelle Irizarry, at [facility]
--- NOTE | 2020-07-23 15:41 | PC.NURSE ---
Pt called and LM for Marlyn Stallings LM. He said he would not be in the 3rd or 4th group, as he has a stomach ache and nausea and is planning on laying down. Marlyn called him back and LM. She included the number for crisis in case he needs it.
--- NOTE | 2020-07-26 11:38 | PC.NURSE ---
I called and left a message for [facility] in [place] , at pt's request. I asked for a call back to refer pt for services.
--- NOTE | 2020-07-26 11:55 | PC.NURSE ---
I received a call back from [facility] rehab, and put in a referral for services at pt's request. Staff said pt's info is in the computer, and will be sent to Josie Chaney, the community service director, who will then assign the case to a counselor. She said the counselor should be calling the patient in a few days.
--- NOTE | 2020-07-27 15:26 | PC.NURSE ---
I called and LM for pt. Asked him to pls call to discuss schedule and talk about how program is going for him.
--- NOTE | 2020-07-28 10:00 | PM.EVENT ---
Event Note Event Note: Pt declined medication appointment on 07/27/20.
--- NOTE | 2020-08-02 13:05 | PC.NURSE ---
Clinician reported that pt did not show up for the 12:05 group. Attempted to call pt, left a message to call back. Will try again.
--- NOTE | 2020-08-02 13:21 | PC.NURSE ---
Spoke with pt that reported he fell asleep at lunch. He confirmed he was safe and will be attending PHP tomorrow.
--- NOTE | 2020-08-03 15:40 | PC.NURSE ---
LM for Callum Fernández, therapist at [facility], informing him of pt's discharge.
--- NOTE | 2020-08-03 16:31 | P.PNPSP_ITS ---
Subjective Subjective Date of Service: 08/03/20 Reason For Visit: depression Interim History: Alcon reports he will discharge today. He reports feeling well, meds being effective, without SE, positive sleep pattern, energetic and having a good appetite. Overall I feel much more steady and even throughout the day. Pt will have a job interview tomorrow. He will meet with Dr. Eduardo on 08/10/20 and continue weekly psychotherapy on Wednesdays. Medication Compliance: Yes Side effects from medications: No Attending Groups: Yes Review of Systems Review of Systems Yes all other systems are reviewed and are negative Psychiatric: Reports no additional psychiatric complaints Mental Status Exam Mental Status Exam Patient Orientation: Person, Place, Time and Situation Level of Consciousness: Awake and Appropriate Patient Behavior: Appropriate and Talkative Mood Description: Calm Affect Description: Calm Patient Cognition Impaired: No Ability to Follow Directions: Excellent Speech Pattern: Clear and Spontaneous Speech Memory Description: Intact Hallucinations: None Delusions: Not Present Thought Process: Intact Thought Content: positive for Intact Judgement: Good Diagnostics Vital Signs (24Hr): Body Mass Index 27.1 Assessment & Plan Patient educated on: diagnosis, medication risk/benefits and therapeutic strategies Informed Consent: understands and further education needed Reason for contiued partial hosp. stay Substantial Risk for: harm to self and rapid decompensation Certification I certify that partial hospital treatment is medically necessary due to the symptoms and problems resulting from the patient's mental illness and the failure to treat the patient at the partial hospital level of care would likely result in the patient requiring inpatient psychiatric care which could not be prevented at a less intensive level of care. Greater than 50% of the session was spent on counseling and/or coordination of care Discharge Plan Discharge Attending provider: Teo Kern Additional Instructions: Discontinue Trazodone Mirtazapine 3.75-7.5 mg HS Appt with Callum Martinez, therapist at [facility], 08/04/2020 at 330pm. Appt with Dr Eduardo at [facility], 08/10/2020 at 3pm. Appt with [facility] 09/23/2020 Information was given about [facility]. Medications: New mirtazapine 7.5 mg tablet 3.75 - 7.5 mg PO BEDTIME Qty: 10 RF: 0 Discontinued trazodone 50 mg Tablet 50 mg PO BEDTIME MRX1 PRN (Reason: Insomnia) Qty: 30 RF: 0 No Action hydroxyzine HCl 25 mg Tablet 25 mg PO BEDTIME MRX1 PRN (Reason: NIGHT TIME ANXIETY) Qty: 30 RF: 0 fluoxetine 20 mg Capsule 20 mg PO DAILY Qty: 30 RF: 0 Latuda 80 mg Tablet 80 mg PO DAILY@1700 Qty: 30 RF: 0 clonidine HCl 0.1 mg Tablet 0.1 mg PO BEDTIME Qty: 30 RF: 0 clonazepam 1 mg Tablet 1 mg PO BID Qty: 60 RF: 0
== END 2020-08-03 23:55 | disposition home or self-care (01) ==
LOC: HO.PHPA 13:30
PROVIDERS: Visit Provider Psychiatry & Neurology Psychiatry
DX: F32.9 Major depressive disorder, single episode, unspecified (principal); Z79.899 Other long term (current) drug therapy
CPT/HCPCS: 90853; 99204; 99213